=== PATIENT | female | born 1965 | race Caucasian/White ===

== ENCOUNTER 2018-12-19 13:22 | Outpatient (CLI) | payer MEDICARE, MEDICAID ==
--- NOTE | 2018-12-19 16:41 | MRI ---
MRI CERVICAL SPINE WITHOUT CONTRAST: 12/19/18 INDICATIONS: Cervical radiculopathy. Cervical vertebrae maintain height and alignment. There are degenerative disc changes throughout with loss of disc space at all levels. Anterior osteophytes. Posterior disc bulge and spondylosis at all levels as described below. At C3-4, posterior disc bulge and spondylosis flatten the thecal sac and efface the anterior subarach noid space. Asymmetric disc bulge to the right with spondylosis encroaches into the right foramina re sulting in right foraminal stenosis at this level. At C4-5, disc bulge and spondylosis efface the anterior subarachnoid space. Bilateral foraminal narro wing more pronounced on the right. At C5-6, disc bulge and spondylosis impinge on the cord. There is flattening of the anterior cord. Fi ndings are slightly more pronounced to the right. Bilateral foraminal stenosis more severe on the rig ht due to asymmetric spondylitic change and facet hypertrophy. At C6-7, disc bulge and spondylosis abut and mildly impinge on the cord. Bilateral foraminal stenosis which appears more severe on the left. Mild spondylosis at C6-7 effaces the anterior subarachnoid space. Cervical cord signal appears normally preserved without evidence of myelomalacia. IMPRESSION: Spondylitic changes throughout the cervical spine, most pronounced at C5-6 and C6-7 where there is co rd compression. Foraminal encroachment at multiple levels as described above. POS: [facility]
--- NOTE | 2018-12-19 17:10 | MRI ---
MRI LUMBAR SPINE WITHOUT CONTRAST: HISTORY: Lumbar radiculopathy. Low back pain with radiation down the left leg. COMPARISON: None. FINDINGS: There is diffuse T1 marrow signal hypointensity of the lumbar vertebrae. Correlate for anemia or a m arrow infiltrative process. There is symmetric signal intensity of the paraspinal muscles. There are T2 hyperintensities in the left and right renal pelvis, which may represent cortical cysts. The overall AP diameter of the central spinal canal is narrowed secondary to congenitally foreshorten ed pedicles. The conus medullaris terminates at the upper aspect of L1. T10-T11: Central disk protrusion with moderate central canal stenosis. Posterior element hypertroph y is identified. Moderate bilateral neural foraminal narrowing. T11-T12: Generalized disk bulge, ligamentum flavum thickening, and facet hypertrophy result in mild central canal stenosis. Bilaterally, the neural foramina are patent. T12-L1: Adequate disk hydration. No significant central canal stenosis or neural foraminal narrowin g. L1-L2: Desiccation with moderate loss of disk space height. Broad-based disk bulge, ligamentum flavu m thickening, and facet hypertrophy result in moderate central canal stenosis. Moderate to severe bi lateral neural foraminal narrowing. L2-L3: Desiccation with moderate loss of disk space height. There is a central disk protrusion with a left subarticular component. Ligamentum flavum thickening and facet hypertrophy result in moderat e to severe central canal stenosis. The right neural foramen is mildly narrowed. Moderate left fora milena narrowing due to disk material. L3-L4: Desiccation with severe loss of disk space height. There is a central/left paracentral disk protrusion, which abuts but does not obscure the traversing left L4 nerve root. Ligamentum flavum th ickening and facet hypertrophy result in moderate to severe central canal stenosis. The right neural foramen is patent. Mild to moderate left neural foraminal narrowing. L4-L5: Adequate disk hydration. There is a generalized disk bulge with a central disk protrusion. There is moderate central canal stenosis. Mild bilateral foraminal narrowing. L5-S1: Desiccation with moderate loss of disk space height. There is a central disk protrusion, whi ch abuts the thecal sac. Mild thecal sac stenosis. Moderate to severe right and severe left foramin al narrowing. IMPRESSION: 1. Overall decreased anterior-posterior diameter of the lumbar spine secondary to congenitally fores hortened pedicles. 2. Multilevel degenerative changes of the lumbar spine, as described above. 3. Degenerative change of the distal thoracic spine, as described above. Evaluation incomplete. POS: [facility]
== END 2018-12-19 13:23 | disposition home or self-care (01) ==
LOC: TBSIIMAG 13:22
PROVIDERS: ATTEND Neurological Surgery
DX: M47.26 Other spondylosis with radiculopathy, lumbar region (principal); M47.22 Other spondylosis with radiculopathy, cervical region; M47.814 Spondylosis without myelopathy or radiculopathy, thoracic region; M50.123 Cervical disc disorder at C6-C7 level with radiculopathy
CPT/HCPCS: 72141; 72148

== ENCOUNTER 2019-01-27 06:08 | Day surgery (SDC) | payer MEDICARE, MEDICAID ==
[2019-01-24 11:07] VITALS: BMI 55.3
[2019-01-27] MEDS ORDERED: ceFAZolin Sodium (SDC) 2 GM/100 ML BAG ONE (06:33)
[2019-01-27 07:05] LABS: Hemoglobin 13.4 g/dL (12.0-16.0); Mean Corpuscular HGB CONC 33.5 g/dL (32.0-36.0); Mean Corpuscular Hemoglobin 29.9 pg (27.0-31.0); Mean Corpuscular Volume 89.2 fL (78.0-98.0); Mean Platelet Volume 8.1 fL (7.4-10.4); Platelet Count 347 thou/uL (130-400); RBC Distribution Width 13.3 % (11.5-14.5); Red Blood Cell (RBC) Count 4.49 mill/uL (4.20-5.40); White Blood Cell (WBC) Count 9.1 thou/uL (4.8-10.8)
[2019-01-27 07:27] LABS: Anion Gap 14 mmol/L (10-20); BUN (Urea Nitrogen) 15 mg/dL (9.8-20.1); Calc. Creatinine Clearance 167 mL/min (70-130); Calcium 9.8 mg/dL (7.8-10.44); Carbon Dioxide 25 mmol/L (22-29); Chloride 104 mmol/L (98-107); Estimated GFR-MDRD 61; Glucose 147 mg/dL (70-105); Potassium 3.9 mmol/L (3.5-5.1); Sodium 139 mmol/L (136-145)
[2019-01-27] MEDS ORDERED: Fentanyl 100 MCG/2 ML VIAL ONE ×3 (08:09→09:52)
--- NOTE | 2019-01-27 09:45 | OP ---
DATE OF PROCEDURE: 01/27/2019 LOCK MASTER: Sebastian Kan PA-C PROCEDURES PERFORMED: Anterior cervical diskectomy C5-C6, interbody arthrodesis, intervertebral biomechanical device, local morselized autograft, demineralized bone matrix, anterior titanium instrumentation, C5-C6. DESCRIPTION OF PROCEDURE: The patient was brought to the operating room and intubated. She was positioned supine with head in modest extension on a gel-filled donut. An incision was made in the right precervical area and dissected the medial sternocleidomastoid muscle. We identified the anterior cervical spinal, and the level was confirmed by x-ray. We debrided anterior osteophytes, placed distraction across the disk space and then completely removed the intervertebral disk beneath the posterior longitudinal ligament to the level of the dura, completely decompressing the spinal cord. The bony endplates were then decorticated for the purpose of arthrodesis and appropriate-sized intervertebral biomechanical PEEK device was brought into the field. It was filled with demineralized bone matrix, local morselized autograft, and tapped in place securely at C5-C6. Next, an anterior plate was brought into the field and secured to C5 and C6 using two 14-mm screws at each level. The wound was then extensively irrigated and MAC hemostasis was secured and the wound was closed in anatomic layers. Job ID: [id number]
[2019-01-27] MEDS ORDERED: Promethazine HCl 25 MG/ML VIAL ONE (10:01)
[2019-01-27] MEDS ORDERED: PROPOFOL 200 MG/20 ML VIAL ONE (12:02)
[2019-01-27] MEDS ORDERED: Rocuronium Bromide 10 MG/ML (10ML VIAL) ONE (12:02)
[2019-01-27] MEDS ORDERED: Succinylcholine Chloride 20 MG/ML 10 ml SYRINGE FS ONE ×2 (12:02)
[2019-01-27] MEDS ORDERED: Ketorolac Tromethamine 30 MG/ML VIAL ONE (12:02)
[2019-01-27] MEDS ORDERED: Ondansetron PF 4 MG/2 ML Vial ONE (12:02)
[2019-01-27] MEDS ORDERED: HYDROcodone/Acetaminophen 5/325 mg Tablet ONE (12:19)
[2019-01-27] MEDS ORDERED: tiZANidine HCl 4 MG TAB ONE (12:19)
== END 2019-01-28 14:17 | disposition home or self-care (01) ==
LOC: SDC 06:08
PROVIDERS: ATTEND Neurological Surgery
PROC: 0RG10A0 Fusion of Cervical Vertebral Joint with Interbody Fusion Device, Anterior Approach, Anterior Column, Open Approach (ICD-10-PCS; principal; 2019-01-27)
PROC: 0RG1070 Fusion of Cervical Vertebral Joint with Autologous Tissue Substitute, Anterior Approach, Anterior Column, Open Approach (ICD-10-PCS; 2019-01-27)
DX: M50.122 Cervical disc disorder at C5-C6 level with radiculopathy (principal); M47.12 Other spondylosis with myelopathy, cervical region; I10 Essential (primary) hypertension; E11.9 Type 2 diabetes mellitus without complications; Z79.4 Long term (current) use of insulin; Z79.899 Other long term (current) drug therapy
CPT/HCPCS: 20930; 20936; 22551; 22845; 22853; 76000; 80048; 85027; 93005; C1713; C1776; 36415; 93010; J0690; J1885; J2405; J2550; J2704; J3010

== ENCOUNTER 2019-02-12 10:46 | Outpatient (CLI) | payer MEDICARE, MEDICAID ==
--- NOTE | 2019-02-12 11:26 | RAD ---
EXAM: 3 views of the cervical spine HISTORY: Neck pain COMPARISON: None FINDINGS: AP, lateral, and open mouth odontoid views of the cervical spine shows normal height and al ignment of the vertebral bodies and intervertebral discs without fracture or subluxation. The patient is status post anterior fusion of C5 and C6 with a plate and screws. A disc spacer is in good position within the intervening disc space. There is joint space narrowing and osteophyte formation at C6/7. No prevertebral soft tissue swelling is seen. IMPRESSION: Postsurgical changes of cervical spine without evidence of complication.
== END 2019-02-12 10:47 | disposition home or self-care (01) ==
LOC: TBSIIMAG 10:46
PROVIDERS: ATTEND Neurological Surgery
DX: M47.12 Other spondylosis with myelopathy, cervical region (principal); M47.22 Other spondylosis with radiculopathy, cervical region; Z98.890 Other specified postprocedural states
CPT/HCPCS: 72040

== ENCOUNTER 2019-07-01 13:46 | Outpatient (CLI) | payer MEDICARE, MEDICAID ==
--- NOTE | 2019-07-01 14:02 | RAD ---
EXAM: 3 views of the cervical spine HISTORY: Surgery with left shoulder and neck pain COMPARISON: 02/12/2019 FINDINGS: AP, lateral, and open mouth odontoid views of the cervical spine shows normal height and al ignment of the vertebral bodies and intervertebral discs without fracture or subluxation. The patient is status post anterior fusion of C5 and C6 with a plate and screws. A disc spacer is seen in the intervening disc space. There is subtle lucency surrounding the C6 screws, unchanged and the distal plate is not completely opposed to the C6 vertebral body. Small osteophytes are seen throughou t the rest of the cervical spine. No prevertebral soft tissue swelling is seen. IMPRESSION: Stable postsurgical changes of C5 and C6.
== END 2019-07-01 13:47 | disposition home or self-care (01) ==
LOC: TBSIIMAG 13:46
PROVIDERS: ATTEND Neurological Surgery
DX: M48.02 Spinal stenosis, cervical region (principal); Z98.1 Arthrodesis status
CPT/HCPCS: 72040

== ENCOUNTER 2020-03-19 12:53 | Outpatient (CLI) | payer MEDICARE, MEDICAID ==
--- NOTE | 2020-03-19 14:39 | MRI ---
MRI LUMBAR SPINE NONCONTRAST: DATE: 03/19/2020 HISTORY: 55-year-old female with "M 54.10, acute lumbar radiculopathy" COMPARISON: 12/19/2018 FINDINGS: For the purposes of this report, it will be assumed that there are 5 lumbar-type vertebrae. Vertebral body heights are maintained. Conus medullaris terminates at lower L1 level. Spinal canal is diffusely small in caliber on a congen ital basis due to developmentally short pedicles. This is exacerbated by lumbar spondylosis. Previous sagittal sequences demonstrated a central and bilateral paracentral significantly indenting the spinal cord at T10-11 level. The current sagittal sequences do not include that level. T11-12: Disc desiccation, mild disc space narrowing, and broad-based central and bilateral paracentra l disc protrusion that abuts the lower spinal cord, and slightly indents it. This level is covered only on sagittal sequences. T12-L1:Normal L1-2:Disc desiccation. Moderate disc space narrowing. Slight retrolisthesis of L1 on L2. Broad-based disc-osteophyte complex indents ventral aspect of thecal sac. Bilateral facet joint effusions. Mild bilateral facet DJD. Moderate right and mild to moderate left neural foraminal stenosis. No significa nt interval change. Moderate central spinal canal stenosis. Tortuosity of cauda equina superior and inferior to the disc space level. This is usually due to severe central spinal canal stenosis. L2-3:Disc desiccation. Mild to moderate disc space narrowing. Prominent diffuse disc bulge. Superimpo sed left paracentral focal small disc herniation. Mild to moderate bilateral facet DJD. No significant right neural foraminal stenosis. Moderate left neural foraminal stenosis. Moderate to sev ere central spinal canal stenosis with trefoil configuration. Posterior epidural fat pad. Severe thecal sac stenosis. Tortuosity of cauda equina superior and inferior to the disc space level. L3-4:Moderate to severe disc space narrowing. Diffuse disc bulge. Superimposed central and bilateral paracentral disc herniation. Bilateral facet joint effusions, right greater than left. Mild to moderate bilateral facet DJD. Moderate central spinal canal stenosis with trefoil configuration. Post erior epidural fat pad. Moderate to severe thecal sac stenosis, especially on the left side. Mild to moderate right and moderate left neural foraminal stenosis. L4-5:Mild disc space narrowing. Central and bilateral paracentral disc protrusion with annular fissur e. Mild to moderate bilateral facet DJD with facet joint effusions. Mild to moderate right and mild left neural foraminal stenosis. Lateral recess stenosis bilaterally. Moderate to severe central spina l canal stenosis. Moderate to severe thecal sac stenosis. L5-S1:Moderate disc space narrowing. Retrolisthesis of L5 on S1. Diffuse disc bulge. Superimposed chun tral and bilateral paracentral disc herniation. High-grade lateral recess stenosis bilaterally. Moderate central spinal canal stenosis. Mild bilateral facet DJD. Moderate bilateral neural foraminal stenosis, left worse than right. No major interval change overall. IMPRESSION: 1) lumbar spondylosis consisting of high-grade degenerative disc disease at all levels from L1-2 thro ugh L5-S1. 2) developmentally small caliber spinal canal exacerbated by lumbar spondylosis at multiple levels. 3) multiple levels of high-grade central spinal canal stenosis and lateral recess stenosis, 4) disc protrusion at T11-12 indenting the spinal cord. 5) previous MRI showed a larger disc herniation at T10-11 impinging on the spinal cord to a greater d egree. That level was not included on the current MRI. 6) otherwise no significant interval change identified
== END 2020-03-19 12:54 | disposition home or self-care (01) ==
LOC: TBSIIMAG 12:53
PROVIDERS: ATTEND Anesthesiology Pain Medicine
DX: M51.16 Intervertebral disc disorders with radiculopathy, lumbar region (principal); M47.26 Other spondylosis with radiculopathy, lumbar region; M51.17 Intervertebral disc disorders with radiculopathy, lumbosacral region; M48.061 Spinal stenosis, lumbar region without neurogenic claudication; M47.27 Other spondylosis with radiculopathy, lumbosacral region; M51.24 Other intervertebral disc displacement, thoracic region
CPT/HCPCS: 72148

== ENCOUNTER 2020-05-21 12:52 | Outpatient (CLI) | payer MEDICARE, MEDICAID ==
--- NOTE | 2020-05-21 14:19 | RAD ---
EXAM: XR Cerv Sp Ap Lat STANDARD DATE: 05/21/2020 2:00 PM INDICATION: Neck pain with bilateral arm pain and weakness COMPARISON: Prior exam dated July 01, 2019 FINDING: ACDF involving C5-C6 appears unchanged. Intervertebral disc cage is unchanged. There is per sistent moderate C6-7 and mild C5-C6 disc degenerative disease. There is mild C3-C4 disc degenerative disease. There is mild multilevel facet osteoarthrosis. Prevertebral soft tissues are no rmal appearing. Spinal alignment is within normal limits. Lateral masses are symmetric. There is a calcified granuloma left upper lobe. There is leftward curvature of the upper thoracic spine centered at T3-4. IMPRESSION:Stable postoperative cervical spine and thoracic scoliosis. There is stable mild cervical spondylosis.
--- NOTE | 2020-05-21 15:04 | MRI ---
MRI OF THE CERVICAL SPINE WITHOUT CONTRAST: COMPARISON: 12/19/2018. HISTORY: Neck pain and bilateral arm pain with weakness to the elbow. The patient had surgery in January. TECHNIQUE: Multiplanar, multisequence MR images were obtained of the cervical spine without contrast. FINDINGS: There is generalized disk desiccation. The patient is status post interval anterior fusion of C5 and C6. The vertebral bodies demonstrate normal alignment without subluxation. The visualized cord demonstrates normal signal throughout. The craniocervical junction is unremarkab le. The prevertebral and paraspinal soft tissues are unremarkable. C2-3: Unremarkable. C3-4: There is a small disk-osteophyte complex. No posterior facet arthrosis. Mild central canal s tenosis. Moderate bilateral neural foraminal stenosis. C4-5: There is a small disk-osteophyte complex. No posterior facet arthrosis. Mild central canal s tenosis. Moderate bilateral neural foraminal stenosis. C5-6: This level is fused. There is improvement in retropulsion of the posterior aspect of this lev el. No posterior facet arthrosis. Moderate central canal stenosis. Moderate bilateral neural kacy inal stenosis. C6-7: there is a small disk-osteophyte complex. No posterior facet arthrosis. Moderate central can al stenosis. Moderate left and mild right neural foraminal stenosis. C7-T1: Unremarkable. IMPRESSION: Degenerative and postsurgical changes of the cervical spine as above. POS: [facility]
== END 2020-05-21 12:53 | disposition home or self-care (01) ==
LOC: TBSIIMAG 12:52
PROVIDERS: ATTEND Neurological Surgery
DX: M47.12 Other spondylosis with myelopathy, cervical region (principal); M47.22 Other spondylosis with radiculopathy, cervical region; M41.9 Scoliosis, unspecified; M25.78 Osteophyte, vertebrae; M48.02 Spinal stenosis, cervical region; M50.00 Cervical disc disorder with myelopathy, unspecified cervical region; M50.10 Cervical disc disorder with radiculopathy, unspecified cervical region; Z98.1 Arthrodesis status
CPT/HCPCS: 72040; 72141

== ENCOUNTER 2020-12-17 06:53 | Outpatient (CLI) | payer MEDICARE, MEDICAID ==
[2020-12-14 14:31] VITALS: BMI 55.3
[2020-12-17 07:34] VITALS: BP 147/77; TEMP 98.2
[2020-12-17] MEDS ORDERED: HYDROcodone/Acetaminophen 5/325 mg Tablet ONE (08:51)
== END 2020-12-17 10:41 | disposition home or self-care (01) ==
LOC: RAD 06:53
PROVIDERS: ATTEND Neurological Surgery
DX: M47.22 Other spondylosis with radiculopathy, cervical region (principal); M54.2 Cervicalgia; M47.816 Spondylosis without myelopathy or radiculopathy, lumbar region; M47.814 Spondylosis without myelopathy or radiculopathy, thoracic region; R91.8 Other nonspecific abnormal finding of lung field; Z98.890 Other specified postprocedural states
CPT/HCPCS: 72126; 72129; 72132; 77002

== ENCOUNTER 2021-05-27 09:22 | Outpatient (CLI) | payer MEDICARE, MEDICAID | END 2021-05-27 09:23 | disposition home or self-care (01) | LOC: ULT 09:22 | PROVIDERS: ATTEND Nurse Practitioner Family | DX: Z12.2 Encounter for screening for malignant neoplasm of respiratory organs (principal); Z13.6 Encounter for screening for cardiovascular disorders; Z82.79 Family history of other congenital malformations, deformations and chromosomal abnormalities | CPT/HCPCS: 71271; 76775 ==

== ENCOUNTER 2021-08-03 09:49 | Outpatient (CLI) | payer MEDICARE, MEDICAID | END 2021-08-03 09:50 | disposition home or self-care (01) | LOC: DTY/OP 09:49 | PROVIDERS: ATTEND Specialist | DX: Z01.818 Encounter for other preprocedural examination (principal); E66.01 Morbid (severe) obesity due to excess calories; E11.9 Type 2 diabetes mellitus without complications | CPT/HCPCS: 97802 ==

== ENCOUNTER 2021-08-14 12:31 | Emergency (ER) | payer MEDICARE, MEDICAID ==
[2021-08-14 14:35] LABS: Bilirubin Negative (Negative); Blood, Urine Negative (Negative); Glucose, Urine (Dipstick) Negative (Negative); Ketone, Urine Trace mg/dL (Negative); Leukocyte Trace (Negative); Nitrite Negative (Negative); Protein, Urine (Dipstick) 100 mg/dL (Neg-Trace)
[2021-08-14 14:36] LABS: Clarity Hazy (Clear)
[2021-08-14 14:41] LABS: Bacteria/HPF 2+ HPF (None Seen); RBC/HPF 0-3 HPF (0-3)
[2021-08-14] MEDS ORDERED: Meclizine HCl 25 MG TAB ONE (15:37)
[2021-08-14 16:36] LABS: #Basophils 0.1 thou/uL (0.0-0.2); #Eosinphils 0.2 thou/uL (0.0-0.7); #Lymphocytes 2.5 thou/uL (1.20-3.40); #Monocytes 0.8 thou/uL (0.11-0.59); #Neutrophils 8.6 thou/uL (1.40-6.50); %Basophils 0.8 % (0.0-1.0); %Eosinophils 1.3 % (0.0-10.0); %Lymphocytes 20.8 % (21.0-51.0); %Monocytes 6.6 % (0.0-10.0); %Neutrophils 70.5 % (42.0-75.0); Hemoglobin 14.2 g/dL (12.0-16.0); Mean Corpuscular HGB CONC 33.4 g/dL (32.0-36.0); Mean Corpuscular Hemoglobin 32.2 pg (27.0-31.0); Mean Corpuscular Volume 96.5 fL (78.0-98.0); Mean Platelet Volume 8.8 fL (7.4-10.4); Platelet Count 210 thou/uL (130-400); RBC Distribution Width 12.2 % (11.5-14.5); Red Blood Cell (RBC) Count 4.42 mill/uL (4.20-5.40); White Blood Cell (WBC) Count 12.2 thou/uL (4.8-10.8)
[2021-08-14 16:56] LABS: ALT (SGPT) 14 U/L (8-55); AST (SGOT) 22 U/L (5-34); Albumin 3.5 g/dL (3.5-5.0); Alkaline Phosphatase 75 U/L (40-110); Anion Gap 17 mmol/L (10-20); BUN (Urea Nitrogen) 19 mg/dL (9.8-20.1); Bilirubin, Total 0.3 mg/dL (0.2-1.2); Calc. Creatinine Clearance 0 mL/min (70-130); Calcium 9.1 mg/dL (7.8-10.44); Carbon Dioxide 18 mmol/L (22-29); Chloride 104 mmol/L (98-107); Globulin 3.9 g/dL (2.4-3.5); Glucose 116 mg/dL (70-105); Glucose POC Confirmation 116 mg/dl (70-105); Potassium 4.6 mmol/L (3.5-5.1); Protein, Total 7.4 g/dL (6.0-8.3); Sodium 134 mmol/L (136-145)
== END 2021-08-14 17:33 | disposition home or self-care (01) ==
LOC: ERS 12:31
DX: R42 Dizziness and giddiness (principal); R29.700 NIHSS score 0; E11.9 Type 2 diabetes mellitus without complications; E78.5 Hyperlipidemia, unspecified; E78.00 Pure hypercholesterolemia, unspecified
CPT/HCPCS: 36415; 36416; 70450; 80053; 81003; 81015; 82947; 85025; 93005

== ENCOUNTER 2022-02-27 01:16 | Inpatient (IN) | payer OTHER, MEDICAID ==
[2022-02-27 01:40] LABS: #Eosinphils 0.1 thou/uL (0.0-0.7); #Lymphocytes 0.7 thou/uL (1.20-3.40); #Monocytes 0.2 thou/uL (0.11-0.59); #Neutrophils 11.3 thou/uL (1.40-6.50); %Basophils 0.2 % (0.0-1.0); %Lymphocytes 5.9 % (21.0-51.0); %Monocytes 1.7 % (0.0-10.0); %Neutrophils 91.2 % (42.0-75.0); Hemoglobin 13.9 g/dL (12.0-16.0); Mean Corpuscular HGB CONC 33.7 g/dL (32.0-36.0); Mean Corpuscular Hemoglobin 31.1 pg (27.0-31.0); Mean Corpuscular Volume 92.3 fL (78.0-98.0); Mean Platelet Volume 8.4 fL (7.4-10.4); Platelet Count 232 thou/uL (130-400); RBC Distribution Width 12.4 % (11.5-14.5); Red Blood Cell (RBC) Count 4.47 mill/uL (4.20-5.40); White Blood Cell (WBC) Count 12.4 thou/uL (4.8-10.8)
[2022-02-27] MEDS ORDERED: cefTRIAXone\\ROCEPHIN 1 GM VIAL ONE (01:49)
[2022-02-27 02:02] LABS: ALT (SGPT) 15 U/L (8-55); AST (SGOT) 16 U/L (5-34); Albumin 3.6 g/dL (3.5-5.0); Alkaline Phosphatase 87 U/L (40-110); Anion Gap 14 mmol/L (10-20); BUN (Urea Nitrogen) 15 mg/dL (9.8-20.1); Bilirubin, Total 0.5 mg/dL (0.2-1.2); Calc. Creatinine Clearance 0 mL/min (70-130); Carbon Dioxide 22 mmol/L (22-29); Chloride 105 mmol/L (98-107); Estimated GFR 84; Globulin 3.8 g/dL (2.4-3.5); Glucose 134 mg/dL (70-105); Potassium 4.1 mmol/L (3.5-5.1); Protein, Total 7.4 g/dL (6.0-8.3); Sodium 137 mmol/L (136-145)
[2022-02-27 02:21] LABS: Bilirubin Negative (Negative); Blood, Urine Negative (Negative); Clarity Clear (Clear); Glucose, Urine (Dipstick) 70 mg/dL (Negative); Ketone, Urine Negative (Negative); Leukocyte Negative Leu/uL (Negative); Nitrite Negative (Negative); Protein, Urine (Dipstick) Negative (Neg-Trace); Specific Gravity, Urine 1.014 (1.002-1.036); Urobilinogen Normal mg/dL (Less than 2)
[2022-02-27] MEDS ORDERED: Vancomycin 1 GM/200 ML BAG ONE (02:55)
[2022-02-27] MEDS ORDERED: Zolpidem Tartrate 5 MG TAB PO PRN (03:14)
[2022-02-27] MEDS ORDERED: HYDROcodone/Acetaminophen 7.5/325 mg Tablet PO PRN (03:14)
[2022-02-27] MEDS ORDERED: Bisacodyl 5 MG TAB PO PRN (03:14)
[2022-02-27] MEDS ORDERED: Ondansetron PF 4 MG/2 ML Vial IVP PRN (03:14)
[2022-02-27] MEDS ORDERED: Sodium Chloride 0.9% 1,000 ML IV SCH (03:15)
[2022-02-27] MEDS ORDERED: HumaLOG 300 UNITS/3 ML VIAL SC PRN (03:17)
[2022-02-27] MEDS ORDERED: Dextrose 5% in Water 1,000 ML IV PRN (03:17)
[2022-02-27] MEDS ORDERED: Dextrose 50% Abboject 50 ML SYRINGE SLOW IVP PRN (03:17)
[2022-02-27 03:19] LABS: SARS-CoV-2 NAA Rapid Test Not Detected (NotDetected)
[2022-02-27] MEDS ORDERED: Morphine 2 MG/ML VIAL SLOW IVP PRN (03:21)
[2022-02-27] MEDS ORDERED: hydrALAZINE 20 MG/ML VIAL SLOW IVP PRN (03:21)
[2022-02-27 05:27] VITALS: BMI 59.8
[2022-02-27 05:30] LABS: #Eosinphils 0.1 thou/uL (0.0-0.7); #Lymphocytes 0.8 thou/uL (1.20-3.40); #Monocytes 0.8 thou/uL (0.11-0.59); #Neutrophils 12.5 thou/uL (1.40-6.50); %Basophils 0.2 % (0.0-1.0); %Eosinophils 0.6 % (0.0-10.0); %Lymphocytes 5.7 % (21.0-51.0); %Monocytes 5.6 % (0.0-10.0); %Neutrophils 87.9 % (42.0-75.0); Hemoglobin 13.1 g/dL (12.0-16.0); Mean Corpuscular HGB CONC 33.7 g/dL (32.0-36.0); Mean Corpuscular Hemoglobin 31.5 pg (27.0-31.0); Mean Corpuscular Volume 93.6 fL (78.0-98.0); Mean Platelet Volume 8.9 fL (7.4-10.4); Platelet Count 241 thou/uL (130-400); RBC Distribution Width 12.3 % (11.5-14.5); Red Blood Cell (RBC) Count 4.16 mill/uL (4.20-5.40); White Blood Cell (WBC) Count 14.2 thou/uL (4.8-10.8)
[2022-02-27 05:37] LABS: Lactic Acid 1.9 mmol/L (0.5-2.2)
[2022-02-27 05:54] LABS: ALT (SGPT) 13 U/L (8-55); AST (SGOT) 14 U/L (5-34); Albumin 3.3 g/dL (3.5-5.0); Alkaline Phosphatase 73 U/L (40-110); Anion Gap 11 mmol/L (10-20); BUN (Urea Nitrogen) 13 mg/dL (9.8-20.1); Bilirubin, Total 0.5 mg/dL (0.2-1.2); Calc. Creatinine Clearance 190 mL/min (70-130); Calcium 8.8 mg/dL (7.8-10.44); Carbon Dioxide 26 mmol/L (22-29); Chloride 104 mmol/L (98-107); Estimated GFR 82; Globulin 3.3 g/dL (2.4-3.5); Glucose 117 mg/dL (70-105); Potassium 3.7 mmol/L (3.5-5.1); Protein, Total 6.6 g/dL (6.0-8.3); Sodium 137 mmol/L (136-145)
[2022-02-27] MEDS: Pregabalin 50 MG CAP PO SCH ×2 (08:20→20:29)
[2022-02-27] MEDS: Enoxaparin Sodium 40 MG/0.4 ML SYRINGE SC SCH (08:23)
[2022-02-27] MEDS: metFORMIN 500 MG TAB PO SCH ×2 (08:23→20:30)
[2022-02-27] MEDS: Lisinopril 5 MG TAB PO SCH (08:23)
[2022-02-27] MEDS: Zinc Sulfate 220 MG CAP PO SCH (08:23)
[2022-02-27] MEDS: Atorvastatin Calcium 20 MG TAB PO SCH (08:23)
[2022-02-27] MEDS: Venlafaxine XR 37.5 MG CAP PO SCH (08:23)
[2022-02-27] MEDS ORDERED: Cefepime 1 GM in Sodium Chloride 0.9% 100 ML IVPB SCH (09:00)
[2022-02-27] MEDS: HumaLOG 300 UNITS/3 ML VIAL SC PRN ×3 (12:06→20:29)
[2022-02-28] MEDS: HumaLOG 300 UNITS/3 ML VIAL SC PRN ×3 (04:34→16:30)
[2022-02-28 07:01] LABS: #Eosinphils 0.2 thou/uL (0.0-0.7); #Lymphocytes 1.5 thou/uL (1.20-3.40); #Monocytes 0.6 thou/uL (0.11-0.59); %Basophils 0.7 % (0.0-1.0); %Eosinophils 2.9 % (0.0-10.0); %Lymphocytes 23.1 % (21.0-51.0); %Monocytes 9.8 % (0.0-10.0); %Neutrophils 63.5 % (42.0-75.0); Hemoglobin 12.6 g/dL (12.0-16.0); Mean Corpuscular HGB CONC 32.1 g/dL (32.0-36.0); Mean Corpuscular Volume 93.4 fL (78.0-98.0); Mean Platelet Volume 8.6 fL (7.4-10.4); Platelet Count 225 thou/uL (130-400); RBC Distribution Width 12.2 % (11.5-14.5); White Blood Cell (WBC) Count 6.3 thou/uL (4.8-10.8)
[2022-02-28 07:15] LABS: Anion Gap 12 mmol/L (10-20); BUN (Urea Nitrogen) 12 mg/dL (9.8-20.1); Calc. Creatinine Clearance 175 mL/min (70-130); Calcium 8.9 mg/dL (7.8-10.44); Carbon Dioxide 23 mmol/L (22-29); Chloride 105 mmol/L (98-107); Estimated GFR 75; Glucose 240 mg/dL (70-105); Potassium 4.1 mmol/L (3.5-5.1); Sodium 136 mmol/L (136-145)
[2022-02-28] MEDS: metFORMIN 500 MG TAB PO SCH (08:37)
[2022-02-28] MEDS: Lisinopril 5 MG TAB PO SCH (08:37)
[2022-02-28] MEDS: Pregabalin 50 MG CAP PO SCH (08:37)
[2022-02-28] MEDS: Enoxaparin Sodium 40 MG/0.4 ML SYRINGE SC SCH (08:38)
[2022-02-28] MEDS: Venlafaxine XR 37.5 MG CAP PO SCH (08:38)
[2022-02-28] MEDS: Atorvastatin Calcium 20 MG TAB PO SCH (08:38)
[2022-02-28] MEDS: Zinc Sulfate 220 MG CAP PO SCH (08:38)
[2022-02-28] MEDS ORDERED: Buprenorphine Hcl [Belbuca] 150 MCG Film SL SCH (09:00)
[2022-02-28 12:08] VITALS: BP 127/79; TEMP 98.2
== END 2022-02-28 18:09 | disposition home or self-care (01) | DRG 872 ==
LOC: ERS 01:16 → T4-B 03:14 → OBSVTOIN 14:52
PROVIDERS: ADMIT Family Medicine; ATTEND Family Medicine
DX: A41.51 Sepsis due to Escherichia coli [E. coli] (principal); Z68.43 Body mass index [BMI] 50.0-59.9, adult; N12 Tubulo-interstitial nephritis, not specified as acute or chronic; Z20.822 Contact with and (suspected) exposure to COVID-19; R91.8 Other nonspecific abnormal finding of lung field; E11.9 Type 2 diabetes mellitus without complications; E78.5 Hyperlipidemia, unspecified; G89.29 Other chronic pain; M54.9 Dorsalgia, unspecified; I10 Essential (primary) hypertension; G47.33 Obstructive sleep apnea (adult) (pediatric); E66.01 Morbid (severe) obesity due to excess calories; F41.9 Anxiety disorder, unspecified; N32.81 Overactive bladder; Z79.899 Other long term (current) drug therapy; Z79.84 Long term (current) use of oral hypoglycemic drugs; Z98.890 Other specified postprocedural states; Z86.16 Personal history of COVID-19
CPT/HCPCS: 36415; 36416; 51701; 71045; 71250; 76770; 80048; 80053; 81003; 83605; 84484; 85025; 87040; 87077; 87086; 87186; 87804; 93005; 96374; 96375; G0378; J0696; J1650; J1815; J1956; J3370; J7050; U0002

== ENCOUNTER 2022-05-18 12:28 | Outpatient (CLI) | payer OTHER, MEDICAID ==
[2022-05-18 14:00] LABS: #Basophils 0.1 10x3/uL (0.0-0.2); #Eosinphils 0.2 10x3/uL (0.0-0.5); #Monocytes 0.7 10x3/uL (0.0-1.1); %Basophils 0.6 % (0.0-2.0); %Eosinophils 2.1 % (0.0-6.0); %Lymphocytes 28.5 % (18.0-47.0); %Neutrophils 60.4 % (40.0-75.0); Hemoglobin 15.3 g/dL (12.0-15.5); Mean Corpuscular HGB CONC 34.7 g/dL (32.0-36.0); Mean Corpuscular Hemoglobin 30.9 pg (27.0-33.0); Mean Corpuscular Volume 89.1 fl (81.6-98.3); Mean Platelet Volume 11.3 fl (7.4-10.4); Platelet Count 328 10x3/uL (150-450); RBC Distribution Width 13.2 % (11.5-14.5); Red Blood Cell (RBC) Count 4.95 10x6/uL (3.90-5.03); White Blood Cell (WBC) Count 8.3 10x3/uL (3.5-10.5)
[2022-05-18 14:30] LABS: Anion Gap 18 mmol/L (10-20); BUN (Urea Nitrogen) 18 mg/dL (9.8-20.1); Calc. Creatinine Clearance 0 mL/min (70-130); Calcium 10.4 mg/dL (7.8-10.44); Carbon Dioxide 23 mmol/L (22-29); Chloride 103 mmol/L (98-107); Estimated GFR 80; Glucose 86 mg/dL (70-105); Potassium 4.5 mmol/L (3.5-5.1); Sodium 139 mmol/L (136-145)
[2022-05-18 20:43] LABS: Hemoglobin A1c 8.5 % (4.0-6.0)
== END 2022-05-18 12:29 | disposition home or self-care (01) ==
LOC: LABBT 12:28
PROVIDERS: ATTEND Specialist
DX: Z01.818 Encounter for other preprocedural examination (principal); E66.01 Morbid (severe) obesity due to excess calories; G47.33 Obstructive sleep apnea (adult) (pediatric); E11.9 Type 2 diabetes mellitus without complications; M54.42 Lumbago with sciatica, left side; G89.29 Other chronic pain; E78.00 Pure hypercholesterolemia, unspecified; I10 Essential (primary) hypertension
CPT/HCPCS: 80048; 83036; 85025; 93005; 93010

== ENCOUNTER 2022-05-18 15:30 | Inpatient (IN) | payer OTHER ==
[2022-05-24] MEDS ORDERED: Scopolamine 1.5 mg/72 hour Patch ONE (09:03)
[2022-05-24] MEDS ORDERED: Acetaminophen 500 MG TAB ONE (09:03)
[2022-05-24] MEDS ORDERED: Heparin 5,000 UNITS/ML VIAL ONE (09:03)
[2022-05-24] MEDS ORDERED: Ketorolac Tromethamine 30 MG/ML VIAL ONE (09:03)
[2022-05-24 09:53] LABS: SARS-CoV-2 NAA Rapid Test Not Detected (NotDetected)
[2022-05-24] MEDS ORDERED: SUGAMMADEX SODIUM 200 MG/2 ML VIAL ONE (10:30)
[2022-05-24] MEDS ORDERED: Bupivacaine/Epinephrine 0.25% 30 ML VIAL ONE (10:30)
[2022-05-24] MEDS ORDERED: Fentanyl 250 MCG/5 ML VIAL ONE (10:30)
[2022-05-24] MEDS ORDERED: Sodium Chloride 0.9% 100 ML ONE (10:42)
[2022-05-24] MEDS ORDERED: cefOXitin 2 GM VIAL ONE (10:42)
[2022-05-24] MEDS ORDERED: Dexamethasone 20 MG/5 ML VIAL ONE (10:58)
[2022-05-24] MEDS ORDERED: Rocuronium Bromide 10 MG/ML (10ML VIAL) ONE (10:58)
[2022-05-24] MEDS ORDERED: Ondansetron PF 4 MG/2 ML Vial ONE (10:58)
[2022-05-24] MEDS ORDERED: PROPOFOL 200 MG/20 ML VIAL ONE (10:58)
[2022-05-24] MEDS ORDERED: Ondansetron HCl/PF 4 MG/2 ML Vial IVP PRN (12:15)
[2022-05-24] MEDS ORDERED: Promethazine HCl 25 MG/ML VIAL IVPB PRN (12:15)
[2022-05-24] MEDS ORDERED: Promethazine HCl 25 MG/ML VIAL IM PRN (12:15)
[2022-05-24] MEDS ORDERED: Dextrose 5% in Water 1,000 ML IV PRN (12:25)
[2022-05-24] MEDS ORDERED: Ondansetron PF 4 MG/2 ML Vial IVP PRN (12:25)
[2022-05-24] MEDS ORDERED: Morphine 4 MG/ML VIAL SLOW IVP PRN ×2 (12:25→12:33)
[2022-05-24] MEDS ORDERED: diphenhydrAMINE 50 MG/ML VIAL IVP PRN (12:25)
[2022-05-24] MEDS ORDERED: hydrALAZINE 20 MG/ML VIAL SLOW IVP PRN (12:25)
[2022-05-24] MEDS ORDERED: Dextrose 50% Abboject 50 ML SYRINGE SLOW IVP PRN (12:25)
[2022-05-24] MEDS ORDERED: Promethazine HCl 25 MG/ML VIAL ONE (12:30)
[2022-05-24 14:12] VITALS: BMI 56.4
[2022-05-24] MEDS: 1/2 NS w/KCL 20 mEq 1,000 ML IV SCH ×2 (15:47→23:56)
[2022-05-24] MEDS: Hydrocodone-Acetamin 15 ML UDCUP PO PRN ×2 (15:47→19:56)
[2022-05-24] MEDS: Ketorolac Tromethamine 30 MG/ML VIAL IVP SCH ×2 (17:33→23:50)
[2022-05-24] MEDS: HumaLOG 300 UNITS/3 ML VIAL SC PRN ×2 (17:33→20:33)
[2022-05-24] MEDS ORDERED: Enoxaparin Sodium 40 MG/0.4 ML SYRINGE SC SCH (21:00)
[2022-05-25] MEDS: Hydrocodone-Acetamin 15 ML UDCUP PO PRN (05:31)
[2022-05-25] MEDS: Ketorolac Tromethamine 30 MG/ML VIAL IVP SCH (05:32)
[2022-05-25 06:06] LABS: #Lymphocytes 1.8 thou/uL (1.20-3.40); #Monocytes 0.7 thou/uL (0.11-0.59); #Neutrophils 9.6 thou/uL (1.40-6.50); %Basophils 0.2 % (0.0-1.0); %Eosinophils 0.2 % (0.0-10.0); %Lymphocytes 14.8 % (21.0-51.0); %Monocytes 5.7 % (0.0-10.0); %Neutrophils 79.1 % (42.0-75.0); Hemoglobin 14.3 g/dL (12.0-16.0); Mean Corpuscular HGB CONC 32.7 g/dL (32.0-36.0); Mean Corpuscular Hemoglobin 31.5 pg (27.0-31.0); Mean Corpuscular Volume 96.6 fl (78.0-98.0); Mean Platelet Volume 9.3 fL (7.4-10.4); Platelet Count 275 10x3/uL (130-400); RBC Distribution Width 12.5 % (11.5-14.5); Red Blood Cell (RBC) Count 4.55 mill/uL (4.20-5.40); White Blood Cell (WBC) Count 12.1 10x3/uL (4.8-10.8)
[2022-05-25 06:17] LABS: Anion Gap 16 mmol/L (10-20); BUN (Urea Nitrogen) 12 mg/dL (9.8-20.1); Calc. Creatinine Clearance 171 mL/min (70-130); Calcium 9.2 mg/dL (7.8-10.44); Carbon Dioxide 23 mmol/L (22-29); Chloride 102 mmol/L (98-107); Estimated GFR 78; Glucose 150 mg/dL (70-105); Potassium 5.1 mmol/L (3.5-5.1); Sodium 136 mmol/L (136-145)
[2022-05-25 08:49] VITALS: BP 134/82; TEMP 98.9
[2022-05-25] MEDS ORDERED: Pantoprazole 40 MG VIAL IVP SCH (09:00)
[2022-05-25] MEDS: 1/2 NS w/KCL 20 mEq 1,000 ML IV SCH (09:32)
== END 2022-05-25 12:00 | disposition home or self-care (01) | DRG 621 ==
LOC: SURG A 05-24 08:29 → SJJU 05-24 13:32 → ERHOLD 05-24 21:01 → SJJU 05-24 21:02
PROVIDERS: ADMIT Specialist; ATTEND Specialist
PROC: 0DB64Z3 Excision of Stomach, Percutaneous Endoscopic Approach, Vertical (ICD-10-PCS; principal; 2022-05-24)
DX: E66.01 Morbid (severe) obesity due to excess calories (principal); Z68.43 Body mass index [BMI] 50.0-59.9, adult; E11.9 Type 2 diabetes mellitus without complications; E78.5 Hyperlipidemia, unspecified; G89.29 Other chronic pain; M54.9 Dorsalgia, unspecified; M54.2 Cervicalgia; Z20.822 Contact with and (suspected) exposure to COVID-19; Z79.84 Long term (current) use of oral hypoglycemic drugs; Z79.899 Other long term (current) drug therapy; Z79.4 Long term (current) use of insulin; Z98.51 Tubal ligation status; Z83.3 Family history of diabetes mellitus; Z82.49 Family history of ischemic heart disease and other diseases of the circulatory system; Z82.3 Family history of stroke
CPT/HCPCS: 36415; 36416; 80048; 85025; 88307; 88342; A4649; J0694; J1100; J1644; J1650; J1815; J1885; J2405; J2550; J2704; J3010; J3480; J3490; U0002

== ENCOUNTER 2023-04-19 11:16 | Outpatient (CLI) | payer OTHER, MEDICAID | END 2023-04-19 11:17 | disposition home or self-care (01) | LOC: SCSMRI 11:16 | PROVIDERS: ATTEND Anesthesiology Pain Medicine | DX: M47.22 Other spondylosis with radiculopathy, cervical region (principal); M48.062 Spinal stenosis, lumbar region with neurogenic claudication; M48.02 Spinal stenosis, cervical region; M47.816 Spondylosis without myelopathy or radiculopathy, lumbar region; M51.36 Other intervertebral disc degeneration, lumbar region; M48.07 Spinal stenosis, lumbosacral region; Z98.1 Arthrodesis status | CPT/HCPCS: 72052; 72141; 72148 ==